=== PATIENT | female | born 1925 | race Caucasian/White ===

== ENCOUNTER → 2016-08-17 | Outpatient (CLI) | payer OTHER, MEDICARE ==
[~2016-08-17] MED LIST: DONE5TAB9 PO; SIMV20TA2 PO; SYN100 PO
[2016-08-17 15:32] LABS: BASO % 0.2 %; BASO ABS # 0.02 K/uL (0-0.2); COMPLETE YES; EOS % 1.1 %; HEMATOCRIT 37.1 % (37-47); IG% 0.2 %; LYMPH % 11.4 %; LYMPH ABS # 1.03 K/uL (1.2-3.4); MEAN CELL VOLUME 84.3 fL (80-100); MEAN CORPUSCULAR HEMOGLOBIN 28.4 pg (25-34); MEAN CORPUSCULAR HGB CONC 33.7 g/dl (32-36); MEAN PLATELET VOLUME 10.6 fL (7.4-10.4); MONO % 10.6 %; NEUT % 76.5 %; PLATELET COUNT 305 K/uL (130-400); WHITE BLOOD COUNT 9.04 K/uL (4.8-10.8)
[2016-08-17 15:40] LABS: ALT/SGPT 17 U/L (12-78); AST/SGOT 17 U/L (15-37); BLOOD UREA NITROGEN 16 mg/dl (7-18); BUN/CREATININE RATIO 13.6 (10-20); CALCIUM 8.6 mg/dl (8.5-10.1); CARBON DIOXIDE 25 mmol/L (21-32); CHLORIDE 101 mmol/L (98-107); GLUCOSE 147 mg/dl (70-99); POTASSIUM 3.2 mmol/L (3.5-5.1); SODIUM 137 mmol/L (136-145)
[2016-08-17 15:43] LABS: ALB/GLOB RATIO 0.8 (0.9-2); ALKALINE PHOSPHATASE 77 U/L (45-117)
== END | disposition home or self-care (01) ==
LOC: C.LABSPEC 14:53
PROVIDERS: ATTEND Internal Medicine
DX: M54.5 Low back pain (principal); N39.0 Urinary tract infection, site not specified

== ENCOUNTER → 2016-08-17 | Outpatient (CLI) | payer OTHER, MEDICARE ==
--- NOTE | 2016-08-17 14:59 | DIAGNOSTIC IMAGING REPORT ---
LUMBAR SPINE 5 VIEWS CLINICAL HISTORY: Chronic low back pain. FINDINGS: Five views of the lumbar spine are compared to study dated 11/24/2005. The skeletal structures are osteopenic. There is a moderate compression deformity of T12. This is age-indeterminate, but new from 2006. There is likely a mild superior endplate compression deformity of T11. Vertebral body height is maintained throughout the lumbar spine. There is 8 mm of anterolisthesis at L4-L5. Minimal anterolisthesis is seen at L3-L4. Mild lumbar dextrocurvature is centered at L3. There are anterior as well as lateral marginal osteophytes. The transverse and spinous processes appear intact. There is no evidence of spondylolysis. Moderate to advanced facet arthropathy is present in the mid to lower lumbar region. There is advanced degenerative disc space narrowing at L1-L2 and L5-S1 with associated endplate sclerosis. Moderate degenerative disc space narrowing is seen at the remaining lumbar levels. The bony pelvis appears intact as visualized. There is advanced atherosclerotic calcification of the abdominal aorta. A nonobstructed abdominal bowel gas pattern is observed. Calcified gallstones are suspected in the right upper quadrant. IMPRESSION: 1. There is a moderate and age-indeterminate compression deformity of T12. This is new from the 2006 examination. 2. There may also be a mild age-indeterminate compression deformity of T11. 3. No acute bony abnormality is seen involving the lumbosacral spine. 4. Osteopenia noting lumbosacral spondylosis and scoliosis as above. 5. Suspect cholelithiasis. Dictated: 08/17/2016 2:22 PM Transcribed: 08/17/2016 2:58 PM Amina Electronically signed by: Cortes Bridges M.D. 08/17/2016 3:09 PM Dictated Date/Time: 08/17/2016 2:22 PM
== END | disposition home or self-care (01) ==
LOC: C.RAD 13:52
PROVIDERS: ATTEND Internal Medicine
DX: M54.5 Low back pain (principal)